=== PATIENT | male | born 1985 | race Caucasian/White ===

== ENCOUNTER → 2017-09-06 | Outpatient (CLI) | payer OTHER | LOC: RAD 15:42 | DX: S83.206A Unspecified tear of unspecified meniscus, current injury, right knee, initial encounter (principal) ==

== ENCOUNTER → 2018-09-23 | Outpatient (CLI) | payer OTHER | LOC: ULTRA 15:40 | DX: R22.1 Localized swelling, mass and lump, neck (principal) ==

== ENCOUNTER → 2018-10-06 | Outpatient (CLI) | payer OTHER | LOC: CAT 15:53 | DX: R59.9 Enlarged lymph nodes, unspecified (principal) ==